=== PATIENT | female | born 1955 | race Caucasian/White ===

== ENCOUNTER → 2017-04-05 09:28 | Outpatient (CLI) | payer BC ==
[2016-10-06 13:27] VITALS: BMI 25.3
[~2017-04-05 09:28] MED LIST: ASPIRIN81 MG PO; AUGMENTIN 500-11 TA1 PO; CEFTIN500 MG PO; HYDROCODON-ACE1 EAC7 PO; HYDROCODONE-APA1 TAB PO; LIPITOR10 MG PO; LISINOPRIL-HCTZ1 T13 PO; MIRALAX17 GM PO; OMNICEF300 MG PO; VITAMIN D31000 UNIT PO; ZOFRAN4 MG PO
== END | disposition home or self-care (01) ==
LOC: D.MRI 09:28
DX: K86.1 Other chronic pancreatitis (principal)